=== PATIENT | female | born 1945 | race Caucasian/White ===

== ENCOUNTER 2021-05-21 10:04 | Day surgery (SDC) | payer MEDICARE ==
[2021-05-21] MEDS ORDERED: Depo-Medrol 40 MG/ML IM ONE (10:05)
[2021-05-21] MEDS ORDERED: Sodium Chloride 0.9% 10 ML FLUSH Syringe IJ ONE (10:05)
[2021-05-21] MEDS ORDERED: Xylocaine 1% Vial 30 ML PF IJ ONE (10:05)
[2021-05-21] MEDS ORDERED: DIPRIVAN 200 MG/20 ML IV ONE (10:05)
[2021-05-21] MEDS ORDERED: BUPIVACAINE 0.5% VIAL IJ ONE (10:05)
[2021-05-21] MEDS ORDERED: Lactated Ringers 1,000 ML IV ONE (11:38)
--- NOTE | 2021-05-21 12:35 | XRAY ---
Indication: Left shoulder injection. Intraoperative fluoroscopy provided for 10 seconds. Single digital spot image obtained prone submitted for interpretation demonstrates needle tip lateral to the left femur neck. Small amount of contrast injected for needle tip placement. Correlate with intraoperative findings/report.
--- NOTE | 2021-05-21 12:35 | XRAY ---
Indication: Lumbar AURELIA. Intraoperative fluoroscopy provided for 19 seconds. 2 digital spot images submitted for interpretation demonstrates midline posterior needle tip projecting posterior to the lumbosacral junction interspace. Small amount of contrast injected for needle tip placement. Correlate with intraoperative findings/report.
--- NOTE | 2021-05-21 12:40 | XRAY ---
19 seconds fluoroscopy time in surgery for lumbar AURELIA.
--- NOTE | 2021-05-21 12:40 | XRAY ---
10 seconds fluoroscopy time in surgery for intra-articular injection of the left hip.
== END 2021-05-21 11:25 | disposition home or self-care (01) ==
LOC: SDC-PAIN 10:04
PROVIDERS: ATTEND Psychiatry & Neurology Pain Medicine
DX: M54.16 Radiculopathy, lumbar region (principal); M16.12 Unilateral primary osteoarthritis, left hip; E11.8 Type 2 diabetes mellitus with unspecified complications
CPT/HCPCS: 20610; 62321; 72100; 73501; 77002; 77003; 82947; J1030; J2001; J2704; Q9966